=== PATIENT | female | born 1980 | race Caucasian/White ===

== ENCOUNTER 2018-03-14 19:50 | Emergency (ER) | payer SELFPAY ==
[~2018-03-14] VITALS: Ht 160 cm; Wt 54.1 kg
--- NOTE | 2018-03-14 20:18 | NUR ---
DR. EMERY AT FOR EVAL OF PT. AND TO DISCUSS POC.
[2018-03-14 20:27] LABS: BASOPHILS # (AUTO) 0.03 x10^3/uL (0-0.1); BASOPHILS % (AUTO) 0 % (0-1); EOSINOPHILS # (AUTO) 0.24 x10^3/uL (0-0.4); EOSINOPHILS % (AUTO) 3 % (1-7); LYMPHOCYTES # (AUTO) 2.14 x10^3/uL (1-3.4); LYMPHOCYTES % (AUTO) 27 % (22-44); MD NO; MEAN CORPUSCULAR HEMOGLOBIN 30.5 pg (27.0-34.8); MEAN CORPUSCULAR HGB CONC 34.3 g/dL (32.4-35.8); MEAN CORPUSCULAR VOLUME 88.8 fL (80-100); MEAN PLATELET VOLUME 10.1 fL (7.4-10.4); MONOCYTES # (AUTO) 0.75 x10^3/uL (0.2-0.8); MONOCYTES % (AUTO) 10 % (2-9); NEUTROPHILS # (AUTO) 4.71 x10^3/uL (1.8-6.8); NEUTROPHILS % (AUTO) 60 % (42-75); PLATELET COUNT 301 x10^3/uL (130-400); RED BLOOD COUNT 4.63 x10^6/uL (3.82-5.3); RED CELL DISTRIBUTION WIDTH 13.3 % (9.6-15.2)
[2018-03-14 20:32] LABS: ALANINE AMINOTRANSFERASE 53 U/L (12-78); ALBUMIN 3.5 g/dL (3.4-5.0); ANION GAP 5 mmol/L (5-15); CALCIUM 8.7 mg/dL (8.5-10.1); CHLORIDE 106 mmol/L (98-107); CREATININE 0.73 mg/dL (0.55-1.02)
[2018-03-14 20:35] LABS: ALKALINE PHOSPHATASE 80 U/L (45-117); BILIRUBIN,TOTAL 0.3 mg/dL (0.2-1.0)
[2018-03-14] MEDS ORDERED: KETOROLAC 30 MG/1 ML ONE (20:38)
--- NOTE | 2018-03-14 20:48 | NUR ---
PT. TO ED WITH CO RIGHT CP/RASH/COUGHING X 2 DAYS. PT. PLACED ON MONITORS. CALL LIGHT IN REACH. MEDICATED PER MAR. FAMILY AT BS. URINE SAMPLE REQUESTED. PT. UNABLE TO PROVIDE AT THIS TIME BUT AWARE OF NEED.
[2018-03-14] MEDS ORDERED: KETOROLAC 30 MG/1 ML IM ONE (21:00)
[2018-03-14 21:16] LABS: RAPID INFLUENZA A Negative (Negative); RAPID INFLUENZA B Negative (Negative)
--- NOTE | 2018-03-14 21:33 | NUR ---
DR. EMERY AT TO DISCUSS POC WITH PT. AND FAMILY.
--- NOTE | 2018-03-14 21:35 | NUR ---
PT. TO D/C HOME.
--- NOTE | 2018-03-14 21:48 | NUR ---
CALLED PHARMACY TO REQUEST MED; THEY REPORT THEY ARE SENDING MED NOW.
[2018-03-14] MEDS ORDERED: BICILLIN-LA 2,400,000 UNITS/4 ML IM ONE (22:00)
--- NOTE | 2018-03-14 22:03 | NUR ---
MED ARRIVED FROM PHARMACY. PT. REFUSING MED STATES "I AM NOT TAKING ANYMORE SHOTS. I WILL TAKE ALL THE PILLS IN THE WORLD BUT I AM NOT DOING ANOTHER SHOT." DR. EMERY UPDATED AND NEW RX ADDED TO D/C PAPERS.
[2018-03-14 22:15] VITALS: BP 104/45
== END 2018-03-14 22:16 | disposition home or self-care (01) ==
LOC: ED 21:09
DX: R07.81 Pleurodynia (principal); J02.9 Acute pharyngitis, unspecified; R21 Rash and other nonspecific skin eruption; F17.200 Nicotine dependence, unspecified, uncomplicated
CPT/HCPCS: 36415; 71046; 80053; 83690; 85025; 85379; 87400; 96372; 99284; J1885